=== PATIENT | female | born 1980 | race Caucasian/White ===

== ENCOUNTER 2020-12-29 19:57 | Emergency (ER) | payer BC ==
[~2020-12-29] VITALS: Ht 162.6 cm; Wt 86.2 kg
[2020-12-29] MEDS ORDERED: LOMAIRA8 MG PO (20:06)
[2020-12-29 20:45] LABS: ABSOLUTE BASOPHILS 0.1 thou/uL (0.0-0.2); ABSOLUTE EOSINOPHILS 0.1 thou/uL (0.0-0.7); ABSOLUTE LYMPHOCYTES 1.6 thou/uL (0.8-5.3); ABSOLUTE MONOCYTES 0.5 thou/uL (0.0-1.2); EOSINOPHILS 1.3 %; HEMATOCRIT 42.3 % (37.0-47.0); HEMOGLOBIN 14.2 gm/dL (12.0-15.0); LYMPHOCYTES 25.3 %; MCH 30.7 pg (26.0-34.0); MCHC 33.5 g/dL (28.0-37.0); MCV 91.8 fL (80.0-100.0); MONOCYTES 8.1 %; MPV 6.7 fl. (7.2-11.1); NUCLEATED RBCS 0 /100WBC; PLATELET COUNT* 313 thou/uL (150-400); POLYS 64.3 %; RBC 4.61 mil/uL (4.20-5.00); RDW-CV 12.5 % (10.5-14.5); WBC 6.2 thou/uL (4.0-11.0)
[2020-12-29 20:52] LABS: CALCIUM 9.3 mg/dL (8.5-10.1); CREATININE 0.8 mg/dL (0.6-1.3); POTASSIUM 3.3 mmol/L (3.5-5.1)
[2020-12-29 20:56] LABS: TOTAL BILIRUBIN 0.4 mg/dL (<0.1-1.0); TOTAL PROTEIN 7.5 g/dL (6.4-8.2)
[2020-12-29 21:12] LABS: URINE BILIRUBIN NEGATIVE (Negative); URINE BLOOD NEGATIVE (Negative); URINE CLARITY CLEAR; URINE COLOR YELLOW; URINE GLUCOSE-RANDOM NEGATIVE (Negative); URINE KETONES NEGATIVE (Negative); URINE LEUKOCYTES-REFLEX NEGATIVE (Negative); URINE NITRITE-REFLEX NEGATIVE (Negative); URINE PROTEIN NEGATIVE (Negative); URINE SPECIFIC GRAVITY 1.015 (1.005-1.030); URINE UROBILINOGEN 0.2 E.U./dl (0.2-1.0)
[2020-12-29 23:00] VITALS: BP 115/69
--- NOTE | 2020-12-30 11:51 | EKG ---
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1980 Requested By: Eulogio Ghotra Order Number: [id number] MD: Abdiaziz Arndt Measurements Intervals [place] Rate: 96 P: 76 OR: 181 QRS: 68 QRSD: 104 T: -9 QT: 343 QTc: 434 Interpretive Statements Sinus rhythm Consider right atrial enlargement Borderline repolarization abnormality No previous ECG available for comparison Electronically Signed On 12-30-2020 11:50:57 CDT by Abdiaziz Arndt [email or web address] <ELECTRONICALLY SIGNED> By: Chivo Arndt MD, [facility] 12/30/20 1150 57 57 Chivo Arndt MD, [facility] /EPI
== END 2020-12-29 23:00 | disposition home or self-care (01) ==
LOC: M.ERS 19:57
PROVIDERS: Physician Assistant
DX: R55 Syncope and collapse (principal); I10 Essential (primary) hypertension; Z79.899 Other long term (current) drug therapy